=== PATIENT | male | born 1965 | race Two or more races ===

== ENCOUNTER 2018-11-23 18:32 | Emergency (ER) | payer OTHER ==
[~2018-11-23] VITALS: Ht 177.8 cm; Wt 115.7 kg
[2018-11-23 23:29] VITALS: BP 131/96
[2018-11-24] MEDS ORDERED: BACITRACIN TOP OINT 1 UD PKG TOP ONE (00:15)
[2018-11-24] MEDS ORDERED: LIDOCAINE 1% HCL (LOCAL ANESTH.) INJ 20ML MDV IJ ONE (00:15)
[2018-11-24] MEDS ORDERED: TETANUS-DIPTH-ACEL PERTUSSIS 0.5ML SYRG IM ONE (01:15)
== END 2018-11-24 01:15 | disposition home or self-care (01) ==
LOC: ER 18:37
DX: S61.011A Laceration without foreign body of right thumb without damage to nail, initial encounter (principal); Z23 Encounter for immunization; W20.8XXA Other cause of strike by thrown, projected or falling object, initial encounter; Y93.89 Activity, other specified; Y92.89 Other specified places as the place of occurrence of the external cause; Y99.8 Other external cause status
CPT/HCPCS: 12041; 73140; 90471; 90715; 99284; J2001; 12001